=== PATIENT | male | born 1995 | race Two or more races ===

== ENCOUNTER 2019-08-09 09:41 | Emergency (ER) | payer SELFPAY ==
[~2019-08-09] VITALS: Ht 180.3 cm; Wt 109.8 kg
[2019-08-09] MEDS ORDERED: ACETAMINOPHEN 325 MG TAB PO ONE (10:00)
[2019-08-09] MEDS ORDERED: cefTRIAXone SOD 1,000 MG VL IM ONE (12:45)
[2019-08-09] MEDS ORDERED: IBUPROFEN 800 MG TAB PO ONE (12:45)
[2019-08-09 13:23] VITALS: BP 161/93
== END 2019-08-09 13:28 | disposition home or self-care (01) ==
LOC: ER 09:41
DX: J02.9 Acute pharyngitis, unspecified (principal)
CPT/HCPCS: 71046; 81002; 96372; 99283; J0696

== ENCOUNTER 2021-04-21 19:54 | Emergency (ER) | payer OTHER ==
[~2021-04-21] VITALS: Ht 177.8 cm; Wt 111.1 kg
[2021-04-21] MEDS ORDERED: LABETALOL HCL 200 MG TAB PO ONE (20:30)
[2021-04-21 20:41] LABS: Eosinophils # (auto) 0.1 10 ^3/uL (0-0.8); Lymphocytes # (auto) 1.7 10 ^3/uL (0.4-5.4); Mean Corpuscular Hemoglobin 18.8 pg (28.0-32.0); Monocytes # (auto) 0.8 10 ^3/uL (0-1.3); Nucleated Red Blood Cells % 0.1 %
[2021-04-21 20:42] LABS: Basophils # (auto) 0.1 10 ^3/uL (0-0.2); Basophils % (auto) 0.6 % (0.0-2.0); Eosinophils % (auto) 1.1 % (0.0-7.0); Hematocrit 42.5 % (41.0-53.0); Hemoglobin 13.3 g/dL (13.5-17.5); Mean Corpuscular Hgb Conc. 31.2 g/dL (32.0-36.0); Mean Corpuscular Volume 60.2 fL (80.0-100.0); Monocytes % (auto) 8.5 % (0.0-12.0); Neutrophils # (auto) 7.1 10 ^3/uL (1.6-8.6); Neutrophils % (auto) 72.8 % (37.0-80.0); Red Blood Cells 7.05 10^6/uL (4.5-5.90); Red Cell Distribution Width 16.2 % (11.8-14.3); White Blood Cell 9.7 10^3/uL (4.4-10.8)
[2021-04-21 20:58] LABS: Albumin 4.3 g/dL (3.4-5.0); BUN/Creatinine Ratio 11.8; Calcium 8.8 mg/dL (8.5-10.1); Potassium 3.6 mmol/L (3.5-5.1)
[2021-04-21 21:01] LABS: Bilirubin, Total 0.9 mg/dL (0.2-1.0); Total Protein 7.6 g/dL (6.4-8.2)
[2021-04-21 23:19] VITALS: BP 168/91
== END 2021-04-22 00:36 | disposition home or self-care (01) ==
LOC: ER 19:55
DX: R51.9 Headache, unspecified (principal)
CPT/HCPCS: 36415; 80053; 85025